=== PATIENT | male | born 1955 | race Caucasian/White ===

== ENCOUNTER 2016-10-05 10:43 | Day surgery (SDC) | payer OTHER ==
--- NOTE | ~2016-10-05 | EGD ---
EGD REPORT [facility] [address] [place]. [id number] NAME: NANCY HADLEY : 53 STATUS : REG [facility]#: [id number] AGE: 61 ADM/REG DATE : 10/05/16 MR#: [id number] REPORT SERV DATE: 10/05/16 DICTATED BY: WAYNE HAYNES DATE: 10/05/16 REPORT STATUS : Draft TRANSCRIBED BY: [employer] DATE: 10/05/16 [facility] Patient Name: Nancy aHdley Date of : 1955 Attending MD: WAYNE HAYNES MD Procedure Date No Time: 10/05/2016 Procedure: Colonoscopy Indications: Screening for colorectal malignant neoplasm, Last colonoscopy: 2006 (Deaf interpretor present by ) Medicines: See the Anesthesia note for documentation of the administered medications Complications: No immediate complications. Procedure: Pre-Anesthesia Assessment: - ASA Grade Assessment: II - A patient with mild systemic disease. After I obtained informed consent, the scope was passed under direct vision. Throughout the procedure, the patient's blood pressure, pulse, and oxygen saturations were monitored continuously. The [id number] was introduced through the anus and advanced to the cecum, identified by appendiceal orifice and ileocecal valve. The colonoscopy was technically difficult and complex. The patient tolerated the procedure well. The quality of the bowel preparation was adequate. Difficult to get into cecum with looping. Had to place on back Findings: The perianal and digital rectal examinations were normal. Internal hemorrhoids were found during retroflexion and were small. A sessile polyp was found in the ascending colon. The polyp was 10 mm in size. The polyp was removed with a hot snare. Resection and retrieval were complete. A sessile polyp was found in the transverse colon. The polyp was small in size. The polyp was removed with a cold biopsy forceps. Resection and retrieval were complete. Three sessile polyps were found in the cecum. The polyps were small in size. These polyps were removed with a cold biopsy forceps. Resection and retrieval were complete. Impression: - Internal hemorrhoids. - One 10 mm polyp in the ascending colon. Resected and retrieved. - One small polyp in the transverse colon. Resected and retrieved. - Three small polyps in the cecum. Resected and EGD REPORT [address] [address] NAME: NANCY HADLEY : [birth year] STATUS : REG [facility]#: [id number] AGE: 61 ADM/REG DATE : 10/05/16 MR#: [id number] REPORT SERV DATE: 10/05/16 DICTATED BY: WAYNE HAYNES DATE: 10/05/16 REPORT STATUS : Draft TRANSCRIBED BY: [employer] DATE: 10/05/16 retrieved. Recommendation: - Patient has a contact number available for emergencies. The signs and symptoms of potential delayed complications were discussed with the patient. Return to normal activities tomorrow. Written discharge instructions were provided to the patient. - Regular diet. - Continue present medications. - Repeat colonoscopy for surveillance based on pathology results. - FOR YOUR BIOPSY RESULTS: Please go to [email or web address] and register to receive your results via the portal. Your biopsy results will be posted there in about 7 to 10 days. IF you do not see result in 10 days, call office. Procedure Code(s): --- Professional --- 83186, Colonoscopy, flexible, proximal to splenic flexure; with removal of tumor(s), polyp(s), or other lesion(s) by snare technique 46919, 59, Colonoscopy, flexible, proximal to splenic flexure; with biopsy, single or multiple Diagnosis Code(s): --- Professional --- K64.8, Other hemorrhoids D12.0, Benign neoplasm of cecum D12.3, Benign neoplasm of transverse colon D12.2, Benign neoplasm of ascending colon Z12.11, Encounter for screening for malignant neoplasm of colon CPT copyright 2013 [employer]. All rights reserved. The codes documented in this report are preliminary and upon certified medical coder review may be revised to meet current compliance requirements. Wayne Haynes MD WAYNE HAYNES MD 10/05/2016 12:27 PM This report has been signed electronically. Number of Addenda: 0 Note Initiated On: 10/05/2016 11:40 AM Scope Withdrawal Time 0 hours 9 minutes 38 seconds EGD REPORT [facility] [address] [address] NAME: NANCY HADLEY : [birth year] STATUS : REG [facility] PAT#: [id number] AGE: 61 ADM/REG DATE : 10/05/16 MR#: [id number] REPORT SERV DATE: 10/05/16 DICTATED BY: WAYNE HAYNES DATE: 10/05/16 REPORT STATUS : Draft TRANSCRIBED BY: [employer] DATE: 10/05/16 [address] [id number]
[~2016-10-05 10:43] MED LIST: CA-MG-ZINC PO; CALTRA600D PO; CRESTOR10 PO; LOTE10 PO; T3 PO
== END 2016-10-05 23:59 | disposition home or self-care (01) ==
LOC: DMU 10:43
PROVIDERS: Internal Medicine Gastroenterology
PROC: 0DBL8ZZ Excision of Transverse Colon, Via Natural or Artificial Opening Endoscopic (ICD-10-PCS; 2016-10-05)
PROC: 0DBH8ZZ Excision of Cecum, Via Natural or Artificial Opening Endoscopic (ICD-10-PCS; principal; 2016-10-05 12:00)
PROC: 0DBK8ZZ Excision of Ascending Colon, Via Natural or Artificial Opening Endoscopic (ICD-10-PCS; 2016-10-05 12:00)
DX: Z12.11 Encounter for screening for malignant neoplasm of colon (principal); D12.2 Benign neoplasm of ascending colon; D12.0 Benign neoplasm of cecum; D12.3 Benign neoplasm of transverse colon; K64.8 Other hemorrhoids; I10 Essential (primary) hypertension; G47.33 Obstructive sleep apnea (adult) (pediatric); Z88.6 Allergy status to analgesic agent
CPT/HCPCS: 88305